=== PATIENT | male | born 1965 | race Caucasian/White ===

== ENCOUNTER 2018-04-22 04:37 | Emergency (ER) | payer SELFPAY ==
[~2018-04-22] VITALS: Ht 175.3 cm; Wt 88.0 kg
[~2018-04-22 04:37] MED LIST: ESCI10TA PO; OLAN2.5T10 PO; TRAZ-137 PO
[2018-04-22 08:06] VITALS: BP 112/65
== END 2018-04-22 09:10 | disposition left against medical advice (07) ==
LOC: ED 09:04
DX: F10.220 Alcohol dependence with intoxication, uncomplicated (principal)
CPT/HCPCS: 99283